=== PATIENT | female | born 1935 | race Caucasian/White ===

== ENCOUNTER 2016-10-19 19:25 | Inpatient (IN) ==
--- NOTE | 2016-10-19 19:35 | Emergency Department Note ---
Disposition Clinical Impression: Elevated troponin Altered mental status Qualifiers: Altered mental status type: unspecified Qualified Code(s): R41.82 - Altered mental status, unspecified Disposition: Admitted As Inpatient Altered Mental Status HPI - General Chief Complaint: ED Altered Mental Status Stated Complaint: AMS x 1 week Time Seen by Provider: 10/19/16 19:28 Source: EMS Mode of arrival: ambulatory Limitations: no limitations Nursing Notes Reviewed: Yes Vital Signs Reviewed: Yes - History of Present Illness HPI Narrative: 81-year-old brought in by EMS for evaluation of altered mental status. Patient found on the floor of her house covered in urine that smelled "infected". EMS states this been going on for 2 days. Family is on their way. Patient is able to tell me her name but does not know where she is at what year it is. Patient continues to talk without making sense. Vital signs stable. Blood sugar greater than 300. Signs of mild fluid overload with pitting edema in the lower extremities. Cardiac device present on the left chest. - Related Data Allergies Allergy/AdvReac Type Severity Reaction Status Date / Time naproxen [From Naprosyn] Allergy Rash Verified 10/19/16 22:08 Tetracycline Allergy Rash Verified 10/19/16 22:08 Limitations: ROS unobtainable due to patients medical condition Physical Exam - General Limitations: altered mental status - Head Head exam: atraumatic, normocephalic - Eye Eye exam: Present: normal appearance - ENT ENT exam: normal exam, normal oropharynx - Neck Neck exam: Present: normal inspection, full ROM. Absent: meningismus - Chest Chest inspection: Present: normal inspection, symmetric chest wall rise - Respiratory Respiratory exam: Present: normal lung sounds bilaterally. Absent: respiratory distress, wheezes - Cardiovascular Cardiovascular exam: Present: regular rate, normal rhythm - Abdominal Exam Abdominal exam: Present: soft, Non-Tender - Extremities Exam Extremities exam: Present: normal inspection, pedal edema (+1 pitting edema to the ankle) - Back Exam Back exam: Present: normal inspection - Expanded Neurological Exam Patient oriented to: Present: person. Absent: place Speech: Present: fluid speech Cranial nerves: facial palsy (VII): Normal Other motor function: There is also her extremities without gross deficit. Due to mental status unable to follow specific commands. Coma Scale Eye Opening: Spontaneous Coma Scale Motor Response: Obeys Commands Coma Scale Verbal Response: Oriented Coma Scale Total: 15 - Psychiatric Psychiatric exam: Present: flat affect - Skin Skin exam: Present: warm, dry, intact Course - Reevaluation(s) Reevaluation #1: Discussed with family at bedside. The patient has been acting different from her baseline. Patient has been taking laxative medications and been having diarrhea. Patient is not the most compliant with her medications. They have been working on this with her. They are not sure how much of anything she has taken. Reevaluation #2: CT abdomen as well as further lab testing ordered. Patient with slightly elevated troponin otherwise nonspecific labs. Patient will need further monitoring in the hospital. - Consultations Consultation #1: Discussed with Dr. King. Pt accepted for admission. Vital Signs Temperature 0 F L 10/19/16 19:28 Pulse Rate 87 10/19/16 19:28 Respiratory Rate 18 10/19/16 19:28 Blood Pressure 161/80 10/19/16 19:28 O2 Sat by Pulse Oximetry 95 10/19/16 19:28 Temperature 97.8 F 10/20/16 07:29 Pulse Rate 67 10/20/16 07:29 Respiratory Rate 16 10/20/16 07:29 Blood Pressure 136/80 10/20/16 07:29 O2 Sat by Pulse Oximetry 99 10/20/16 07:29 Oxygen Delivery Oxygen Delivery Nasal Cannula Altered Mental Status - Medical Records Medical records reviewed: Yes I reviewed the patient's medical records. - Lab Data Lab results reviewed: Yes I reviewed the patient's lab results. Result diagrams: 10/20/16 01:53 10/20/16 01:53 Lab Results 10/19/16 10/19/16 10/19/16 Range/Units 19:33 19:45 19:54 WBC 9.0 (4.3-11.1) K/mcL RBC 5.02 H (3.82-4.97) M/mcL Hgb 14.4 (11.5-15.4) g/dL Hct 43.2 (35.3-44.9) % MCV 86.1 (83.0-100.0) fL MCH 28.7 (28.0-33.3) pg MCHC 33.3 (31.6-35.5) g/dL RDW 12.8 (11.5-14.5) % Plt Count 206 (140-400) K/mcL MPV 9.6 (9.4-12.4) fL Immature Gran % 1.2 (0-4) % Seg Neutrophils % 71.8 % Lymphocytes % 19.6 % Monocytes % 5.8 % Eosinophils % 0.9 % Basophils % 0.7 % Neutrophils # 6.4 (1.6-8.9) K/mcL Lymphocytes # 1.8 (0.6-4.6) K/mcL Monocytes # 0.5 (0.0-1.3) K/mcL Eosinophils # 0.1 (0.0-0.6) K/mcL Basophils # 0.1 (0.0-0.2) K/mcL PT (9.4-12.1) Seconds INR Sodium (136-145) mEq/L Potassium (3.5-4.5) mEq/L Chloride (98-109) mEq/L Carbon Dioxide (19-29) mEq/L BUN (7-20) mg/dL Creatinine (0.57-1.11) mg/dL Est GFR ( Amer) (> 60) Est GFR (Non-Af Amer) (> 60) BUN/Creatinine Ratio (6-26) Glucose (70-99) mg/dL POC Glucose 354 H (58-89) Calculated Osmolality (280-300) Lactic Acid (0.5-2.2) mmol/L Calcium (8.6-10.8) mg/dL Total Bilirubin (0.2-1.2) mg/dL Direct Bilirubin (0.0-0.5) mg/dL Indirect Bilirubin (0.0-1.2) mg/dL AST (5-34) Units/L ALT (0-55) Units/L Alkaline Phosphatase (38-126) Units/L Ammonia (18-72) mcmol/L Creatine Kinase (29-168) Units/L Troponin I (0-0.03) ng/mL Serum Total Protein (6.0-8.3) g/dL Albumin (3.5-5.0) g/dL Globulin (2.4-3.5) g/dL Albumin/Globulin Ratio (1.1-2.2) TSH (0.350-4.840) mcIU/mL Urine Color Yellow (Yellow) Urine Clarity Clear (Clear) Urine pH 5.5 (5.0-8.0) pH Units Ur Specific [place] > 1.030 H (1.010-1.025) Urine Protein Negative (Neg-Trace) mg/dL Urine Glucose (UA) >=1000 H (Normal) mg/dL Urine Ketones 15 H (Negative) mg/dL Urine Blood Negative (Negative) Urine Nitrite Negative (Negative) Urine Bilirubin Negative (Negative) Urine Urobilinogen Normal (Normal) mg/dL Ur Leukocyte Esterase Negative (Negative) Ur Culture Indicated? NO (NO) Ethyl Alcohol (0-10) mg/dL 10/19/16 10/19/16 10/19/16 Range/Units 19:54 19:54 19:54 WBC (4.3-11.1) K/mcL RBC (3.82-4.97) M/mcL Hgb (11.5-15.4) g/dL Hct (35.3-44.9) % MCV (83.0-100.0) fL MCH (28.0-33.3) pg MCHC (31.6-35.5) g/dL RDW (11.5-14.5) % Plt Count (140-400) K/mcL MPV (9.4-12.4) fL Immature Gran % (0-4) % Seg Neutrophils % % Lymphocytes % % Monocytes % % Eosinophils % % Basophils % % Neutrophils # (1.6-8.9) K/mcL Lymphocytes # (0.6-4.6) K/mcL Monocytes # (0.0-1.3) K/mcL Eosinophils # (0.0-0.6) K/mcL Basophils # (0.0-0.2) K/mcL PT 11.4 (9.4-12.1) Seconds INR 1.1 Sodium 137 (136-145) mEq/L Potassium 4.1 (3.5-4.5) mEq/L Chloride 102 (98-109) mEq/L Carbon Dioxide 23 (19-29) mEq/L BUN 15 (7-20) mg/dL Creatinine 1.04 (0.57-1.11) mg/dL Est GFR ( Amer) > 60 (> 60) Est GFR (Non-Af Amer) 51 L (> 60) BUN/Creatinine Ratio 14 (6-26) Glucose 402 H (70-99) mg/dL POC Glucose (58-89) Calculated Osmolality 302 H (280-300) Lactic Acid (0.5-2.2) mmol/L Calcium 9.7 (8.6-10.8) mg/dL Total Bilirubin 1.4 H (0.2-1.2) mg/dL Direct Bilirubin 0.5 (0.0-0.5) mg/dL Indirect Bilirubin 0.9 (0.0-1.2) mg/dL AST 20 (5-34) Units/L ALT 23 (0-55) Units/L Alkaline Phosphatase 62 (38-126) Units/L Ammonia (18-72) mcmol/L Creatine Kinase (29-168) Units/L Troponin I 0.13 H* (0-0.03) ng/mL Serum Total Protein 6.3 (6.0-8.3) g/dL Albumin 3.2 L (3.5-5.0) g/dL Globulin 3.1 (2.4-3.5) g/dL Albumin/Globulin Ratio 1.0 L (1.1-2.2) TSH 2.620 (0.350-4.840) mcIU/mL Urine Color (Yellow) Urine Clarity (Clear) Urine pH (5.0-8.0) pH Units Ur Specific [place] (1.010-1.025) Urine Protein (Neg-Trace) mg/dL Urine Glucose (UA) (Normal) mg/dL Urine Ketones (Negative) mg/dL Urine Blood (Negative) Urine Nitrite (Negative) Urine Bilirubin (Negative) Urine Urobilinogen (Normal) mg/dL Ur Leukocyte Esterase (Negative) Ur Culture Indicated? (NO) Ethyl Alcohol < 10 (0-10) mg/dL 10/19/16 10/19/16 10/19/16 Range/Units 19:54 19:54 20:54 WBC (4.3-11.1) K/mcL RBC (3.82-4.97) M/mcL Hgb (11.5-15.4) g/dL Hct (35.3-44.9) % MCV (83.0-100.0) fL MCH (28.0-33.3) pg MCHC (31.6-35.5) g/dL RDW (11.5-14.5) % Plt Count (140-400) K/mcL MPV (9.4-12.4) fL Immature Gran % (0-4) % Seg Neutrophils % % Lymphocytes % % Monocytes % % Eosinophils % % Basophils % % Neutrophils # (1.6-8.9) K/mcL Lymphocytes # (0.6-4.6) K/mcL Monocytes # (0.0-1.3) K/mcL Eosinophils # (0.0-0.6) K/mcL Basophils # (0.0-0.2) K/mcL PT (9.4-12.1) Seconds INR Sodium (136-145) mEq/L Potassium (3.5-4.5) mEq/L Chloride (98-109) mEq/L Carbon Dioxide (19-29) mEq/L BUN (7-20) mg/dL Creatinine (0.57-1.11) mg/dL Est GFR ( Amer) (> 60) Est GFR (Non-Af Amer) (> 60) BUN/Creatinine Ratio (6-26) Glucose (70-99) mg/dL POC Glucose (58-89) Calculated Osmolality (280-300) Lactic Acid 1.7 (0.5-2.2) mmol/L Calcium (8.6-10.8) mg/dL Total Bilirubin (0.2-1.2) mg/dL Direct Bilirubin (0.0-0.5) mg/dL Indirect Bilirubin (0.0-1.2) mg/dL AST (5-34) Units/L ALT (0-55) Units/L Alkaline Phosphatase (38-126) Units/L Ammonia 17 L (18-72) mcmol/L Creatine Kinase 122 (29-168) Units/L Troponin I (0-0.03) ng/mL Serum Total Protein (6.0-8.3) g/dL Albumin (3.5-5.0) g/dL Globulin (2.4-3.5) g/dL Albumin/Globulin Ratio (1.1-2.2) TSH (0.350-4.840) mcIU/mL Urine Color (Yellow) Urine Clarity (Clear) Urine pH (5.0-8.0) pH Units Ur Specific [place] (1.010-1.025) Urine Protein (Neg-Trace) mg/dL Urine Glucose (UA) (Normal) mg/dL Urine Ketones (Negative) mg/dL Urine Blood (Negative) Urine Nitrite (Negative) Urine Bilirubin (Negative) Urine Urobilinogen (Normal) mg/dL Ur Leukocyte Esterase (Negative) Ur Culture Indicated? (NO) Ethyl Alcohol (0-10) mg/dL - Radiology Data Radiology results reviewed: Yes I reviewed the patient's radiology results. Chest X-Ray 10/19/16 19:30 IMPRESSION: No acute cardiopulmonary process. D/ / Dominic Apodaca MD / Dominic Apodaca MD Interpreting Provider: Dominic Apodaca MD Head CT 10/19/16 19:30 IMPRESSION: No acute cranial abnormality. [id number] pattern of microvascular ischemic disease in the cerebral white matter. Posterior fossa arachnoid cyst. D/ / Ridge Becerra MD / Ridge Becerra MD Interpreting Provider: Ridge Becerra MD Cervical Spine CT 10/19/16 19:38 IMPRESSION: No acute abnormality of the cervical spine. D/ / Norris Quinn MD / Norris Quinn MD Interpreting Provider: Norris Quinn MD Abdomen/Pelvis CT 10/19/16 20:29 IMPRESSION: 1. No acute abnormality detected. 2. Chronic left adnexal cyst, unchanged when compared to the previous exam. 3. Chronic T12 compression fracture, unchanged. D/ / Norris Quinn MD / Norris Quinn MD Interpreting Provider: Norris Quinn MD - EKG Data EKG attestation: Yes I reviewed and interpreted this EKG. EKG results narrative: EKG shows electronically paced rhythm with a ventricular rate of 82. QRS 156. QTC 452. No significant ST elevations or depressions. No specific changes from previous EKG of 01/19/13. Attestation Statement - Attestation Attestation: I, Carlos Blanca MD, personally evaluated this patient and discussed their management with the resident physician. I reviewed the resident's note and agree with the documented findings, medical decision making, and plan of care. 81-year-old female presents to the emergency department for altered mental status and weakness. She lives with her daughter and daughter reports that she is normally very alert and oriented and works crossword puzzles. She states that over the past couple days she has had increasing weakness and been less active and seemed more confused. This afternoon when daughter came home from work she states the patient was sitting on the couch that was sort of slumped over and leaning to one side. The daughter tried to help her straighten up on the couch but she just slid off the couch and onto the floor and could not get up. He has not been sick otherwise. His been no cough or fever. No complaint of chest pain or shortness of breath. No vomiting or diarrhea. No complaints of urinary symptoms. On examination patient is a well-developed thin elderly female in no acute distress. She responds to verbal stimuli but seems confused and disoriented. There is no cyanosis or diaphoresis. Neck is supple and nontender. Breath sounds are equal bilaterally. Heart regular. Abdomen is soft and nontender with normal bowel sounds. No gross focal neurological deficits. Lab and x-rays reviewed and unremarkable other than an elevated troponin of 0.13. No acute changes noted on EKG. The hospitalist, Dr. King, was consulted and accepted admission of the patient.
[2016-10-19 19:54] LABS: Bilirubin,Urine Negative (Negative); Blood,Urine Negative (Negative); Clarity,Urine Clear (Clear); Color,Urine Yellow (Yellow); Glucose,Urine (UA) >=1000 mg/dL (Normal); Ketones,Urine 15 mg/dL (Negative); Leukocyte Esterase,Urine Negative (Negative); Nitrite,Urine Negative (Negative); PH,Urine 5.5 pH Units (5.0-8.0); Protein,Urine Negative (Neg-Trace); Specific Gravity,Urine > 1.030 (1.010-1.025); Urobilinogen,Urine Normal (Normal)
[2016-10-19 20:00] LABS: Basophils # 0.1 K/mcL (0.0-0.2); Basophils % 0.7 %; Eosinophils # 0.1 K/mcL (0.0-0.6); Eosinophils % 0.9 %; Hematocrit 43.2 % (35.3-44.9); Hemoglobin 14.4 g/dL (11.5-15.4); Immature Granulocytes % 1.2 % (0-4); Lymphocytes # 1.8 K/mcL (0.6-4.6); Lymphocytes % 19.6 %; Mean Corpuscular HGB Conc 33.3 g/dL (31.6-35.5); Mean Corpuscular Hemoglobin 28.7 pg (28.0-33.3); Mean Corpuscular Volume 86.1 fL (83.0-100.0); Mean Platelet Volume 9.6 fL (9.4-12.4); Monocytes # 0.5 K/mcL (0.0-1.3); Monocytes % 5.8 %; Neutrophils # 6.4 K/mcL (1.6-8.9); Platelet Count 206 K/mcL (140-400); Red Blood Count 5.02 M/mcL (3.82-4.97); Red Cell Distribution Width 12.8 % (11.5-14.5); Segmented Neutrophils % 71.8 %
[2016-10-19 20:05] LABS: INR 1.1; Prothrombin Time 11.4 Seconds (9.4-12.1)
[2016-10-19 20:16] LABS: Alanine Aminotransferase 23 Units/L (0-55); Albumin 3.2 g/dL (3.5-5.0); Alkaline Phosphatase 62 Units/L (38-126); Aspartate Amino Transferase 20 Units/L (5-34); BUN/Creatinine Ratio 14 (6-26); Bilirubin,Direct 0.5 mg/dL (0.0-0.5); Bilirubin,Indirect 0.9 mg/dL (0.0-1.2); Bilirubin,Total 1.4 mg/dL (0.2-1.2); Blood Urea Nitrogen 15 mg/dL (7-20); Calcium 9.7 mg/dL (8.6-10.8); Carbon Dioxide 23 mEq/L (19-29); Chloride 102 mEq/L (98-109); Globulin 3.1 g/dL (2.4-3.5); Glucose 402 mg/dL (70-99); Osmolality,Calculated 302 (280-300); Potassium 4.1 mEq/L (3.5-4.5); Sodium 137 mEq/L (136-145); Total Protein 6.3 g/dL (6.0-8.3); eGFR For African Americans > 60 (> 60); eGFR For Non-African Americans 51 (> 60)
[2016-10-19 20:48] LABS: Ethanol < 10 mg/dL (0-10)
[2016-10-19] MEDS ORDERED: 0.9 % Sodium Chloride 1,000 ML IVC ONE (21:38)
[2016-10-19] MEDS ORDERED: Aspirin 81 MG TAB.CHEW PO STA (22:12)
--- NOTE | 2016-10-19 23:57 | Internal Med History&Physical ---
Date of Encounter: 10/20/16 Time of Encounter: 23:50 Assessment and Plan (1) Acute encephalopathy Current visit: Yes Status: Acute - Still confused at this time. - Likely metabolic encephalopathy given her hyperglycemia and dehydration. - UA does not suggest UTI. - CXR does not suggest pneumonia. - Continue IV fluid and insulin. - Closely monitor. (2) Elevated troponin Current visit: Yes Status: Acute - Troponin 0.13 in ED. - Likely demand ischemia. Doubt CT given no significant ischemic change on EKG. - Continue to trend troponin. (3) Hyperglycemia Current visit: Yes Status: Acute - Glucose 402 on admission. - Likely secondary to non-compliance to diabetes medication and dehydration. - Doubt DKA given normal anion gap (12). - Insulin sliding scale with routine Accucheck. (4) Dehydration Current visit: Yes Status: Acute - With highly concentrated urine. - Unlikely rhabdomyolysis given normal CK. - Will rehydrate with IV fluid. (5) Diabetes mellitus Current visit: Yes Status: Chronic - Likely [id number] as last Hgb A1C at 11.2 on 08/23/15 - Will check Hgb A1C. - Insulin sliding scale with routine Accucheck. 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 Internal Medicine - H&P: HPI Chief complaint: Altered mental status Admitted From: Emergency Dept Plans for Post Hospital Care: Home History of present illness: Ms. Zelaya is a 81 year old female with PMH of DM2, HTN, HLD, CAD and complete heart block s/p dual chamber pacemaker placement. Patient was sent to [place] ED after being found down on the floor at home covered in urine for 2 days. Upon encounter, patient can only oriented to her name and not answer other questions appropriately. Given no family member at bedside, the history is obtained via reviewing [facility] and [facility] records. Per ED physician who talked to the family members, patient has been acting different from her baseline. Patient has been taking laxative medications and having diarrhea. Patient is known non-compliant with her medications. CT head, cervical spine and abdomen/ pelvis found no acute abnormality. Lab suggests hyperglycemia, highly concentrated urine and elevated troponin (0.13). EKG is consistent with complete heart block s/p dual chamber pacemaker and no significant ischemic change. Past Med Surg Social Fam HX - Past Medical History Medical history: diabetes, hypertension Psychiatric history: no psych history - Past Surgical History Surgical History: pacemaker/AICD (Dual chamber pacemaker) - Social History Smoking Status: Former smoker Smokeless Tobacco Status: No Alcohol use: none Drug use: none - Family History Father Living Status: Age at : 64 Hx Family Cardiac Disorders: Yes (CT) Internal Medicine - H&P: Meds Allergies naproxen [From Naprosyn] Allergy (Verified 10/19/16 22:08) Rash Tetracycline Allergy (Verified 10/19/16 22:08) Rash ROS unobtainable: due to mental status - Constitutional Vitals: Temp Pulse Resp BP Pulse Ox 0 F L 80 0 0/0 96 10/19/16 23:14 10/19/16 22:54 10/19/16 23:14 10/19/16 23:14 10/19/16 22:54 General appearance: Present: A&O X 1 ([place] to self only), no acute distress. Absent: answers questions appropriately - Head Head exam: Present: atraumatic, normocephalic - Eye Eye exam: Present: PERRL, conjuntiva pink, sclera anicteric - Neck Neck exam general surgery: Present: supple, trachea midline. Absent: lymphadenopathy - Respiratory Respiratory exam: Present: CTAB. Absent: accessory muscle use, rales, rhonchi, wheezes - Cardiovascular Cardiovascular exam: Present: RRR, +S1, +S2. Absent: diastolic murmur, gallop, rubs, systolic murmur - GI/Abdominal GI/Abdominal exam: Present: normal bowel sounds, soft, no peritoneal signs. Absent: distended, tenderness - Extremities Exam Extremities exam: Present: warm, radial pulses palpable and symetrical. Absent : calf tenderness, cyanotic, pedal edema - Neurological Exam Neurological exam: Absent: pronater drift, facial droop Additional comments: Unable to fully assess given patient's mental status. Patient seems to be able to move her upper and lower extremities. - Skin Skin exam: Present: dry, intact, warm Internal Med - H&P Results - Labs CBC & Chem 7: 10/19/16 19:54 10/19/16 19:54
[2016-10-20] MEDS ORDERED: D5% in Water 1,000 ML IVC PRN (00:11)
[2016-10-20] MEDS ORDERED: *HR* Dextrose 50 % in Water (Syg) 50 ML SYRINGE IVP PRN (00:11)
[2016-10-20] MEDS ORDERED: Dextrose Gel 15 GM PO PRN ×2 (00:11)
--- NOTE | 2016-10-20 00:14 | Event Note ---
Date of Encounter: 10/20/16 Time of Encounter: 00:13 Patient seen and examined with medical chemist. She was found on the ground unknown time. Patient confused during my interview unable to provide history. No clear infectious cause. Vitals are stable. Head CT is unremarkable. She is hyperglycemic no anion gap. Slight dehydration. CPK is normal. Will hydrate physical therapy occupational therapy to see. Observation admisison
[2016-10-20] MEDS ORDERED: Insulin LISPRO 300 UNITS/3 ML VIAL SQ ONE (02:19)
[2016-10-20] MEDS: Insulin LISPRO 300 UNITS/3 ML VIAL SQ SCH ×5 (02:22→23:50)
[2016-10-20 02:55] LABS: Basophils # 0.1 K/mcL (0.0-0.2); Basophils % 0.6 %; Eosinophils # 0.1 K/mcL (0.0-0.6); Eosinophils % 0.9 %; Hemoglobin 13.9 g/dL (11.5-15.4); Immature Granulocytes % 1.6 % (0-4); Lymphocytes # 1.9 K/mcL (0.6-4.6); Mean Corpuscular HGB Conc 33.1 g/dL (31.6-35.5); Mean Corpuscular Hemoglobin 28.4 pg (28.0-33.3); Mean Corpuscular Volume 85.9 fL (83.0-100.0); Mean Platelet Volume 9.9 fL (9.4-12.4); Monocytes # 0.6 K/mcL (0.0-1.3); Neutrophils # 6.2 K/mcL (1.6-8.9); Platelet Count 196 K/mcL (140-400); Red Blood Count 4.89 M/mcL (3.82-4.97); Red Cell Distribution Width 12.7 % (11.5-14.5); Segmented Neutrophils % 68.9 %
[2016-10-20 02:59] LABS: Hemoglobin A1C 12.7 %
[2016-10-20 03:02] LABS: Alanine Aminotransferase 16 Units/L (0-55); Albumin 2.9 g/dL (3.5-5.0); Alkaline Phosphatase 58 Units/L (38-126); Aspartate Amino Transferase 18 Units/L (5-34); BUN/Creatinine Ratio 15 (6-26); Bilirubin,Total 1.5 mg/dL (0.2-1.2); Blood Urea Nitrogen 13 mg/dL (7-20); Calcium 9.1 mg/dL (8.6-10.8); Carbon Dioxide 24 mEq/L (19-29); Chloride 103 mEq/L (98-109); Glucose 359 mg/dL (70-99); Osmolality,Calculated 299 (280-300); Potassium 3.7 mEq/L (3.5-4.5); Sodium 137 mEq/L (136-145); Total Protein 5.9 g/dL (6.0-8.3); eGFR For African Americans > 60 (> 60); eGFR For Non-African Americans > 60 (> 60)
[2016-10-20] MEDS: *HR* Heparin 5,000 UNIT/ML VIAL SQ SCH ×3 (06:45→22:00)
[2016-10-20] MEDS: 0.9 % Sodium Chloride 1,000 ML IVC SCH ×2 (10:46→22:00)
--- NOTE | 2016-10-20 14:34 | Internal Med Progress Note ---
Date of Encounter: 10/20/16 Time of Encounter: 13:59 - Assessment and plan (1) Acute encephalopathy Current Visit: Yes Status: Acute Assessment and plan: was found down at home, acutely confused. Per ED notes, ED staff spoke with daughter and patient apparently at baseline mentation 2 days prior to admission (although baseline mentation unknown; no family at bedside and number in chart daughter is not a working number). Head CT and c-spine CT unremarkable. UA not suggestive of UTI, CXR non-acute. Possible metabolic encephalopathy given hyperglycemia and dehydration. Continue treating underlying causes. Monitor mental status. Consider Neurology consultation if no improvement. Brain MRI, ammonia, UDS and ABG pending (2) CAD (coronary artery disease) Current Visit: Yes Status: Acute Assessment and plan: with hx complete heart block s/p dual chamber pacemaker placement. Troponin 0.13 on arrival. EKG without acute ST changes. Possibly demand ischemia; unable to assess whether symptomatic. Troponin trending down. Cycle one more troponin, check echo, pacer interrogation. Cardiology consult if needed. Qualifiers: Coronary Disease-Associated Artery/Lesion type: [place] artery [place] vs. transplanted heart: [place] heart Associated angina: without angina Qualified Code(s): I25.10 - Atherosclerotic heart disease of [place] coronary artery without angina pectoris (3) Dehydration Current Visit: Yes Status: Acute Assessment and plan: with highly concentrated urine. Unlikely rhabdomyolysis given normal CK. Cont IV fluids. (4) Diabetes mellitus Current Visit: Yes Status: Chronic Assessment and plan: uncontrolled; glucose 402 on admission. Likely secondary to non-compliance to diabetes medication and dehydration. Doubt DKA given normal anion gap (12). Hgb A1c 12. Cont low dose SSI for now as she is NPO. Increase to more aggressive SSI once mentation improves and able to take PO Qualifiers: Diabetes mellitus type: type 2 Diabetes mellitus complication status: with unspecified complications Diabetes mellitus fpc insulin use: unspecified fpc insulin use status Qualified Code(s): E11.8 - Type 2 diabetes mellitus with unspecified complications (5) DVT prophylaxis Current Visit: Yes Status: Acute Assessment and plan: heparin - Time Spent With Patient 25 - 35 minutes - Subjective Interval history: Patient is new to me; information obtained from chart review and RN only as patient is lethargic, confused and unable to provide details. No family at bedside. Patient will open eyes and tells me her name but then quickly falls back to sleep. - Constitutional Vitals: Temp Pulse Resp BP Pulse Ox 98.0 F 69 16 123/78 94 10/20/16 11:42 10/20/16 11:42 10/20/16 11:42 10/20/16 11:42 10/20/16 11:42 General appearance: Present: A&O X 1 ([place] to self only), no acute distress. Absent: answers questions appropriately - Head Head exam: Present: atraumatic, normocephalic - Eye Eye exam: Present: PERRL, conjuntiva pink, sclera anicteric Pupils: Present: PERRL - Neck Neck exam general surgery: Present: supple, trachea midline. Absent: lymphadenopathy - Respiratory Respiratory exam: Present: CTAB. Absent: accessory muscle use, rales, rhonchi, wheezes - Cardiovascular Cardiovascular exam: Present: RRR, +S1, +S2. Absent: diastolic murmur, gallop, rubs, systolic murmur - GI/Abdominal GI/Abdominal exam: Present: normal bowel sounds, soft, no peritoneal signs. Absent: distended, tenderness - Extremities Exam Extremities exam: Present: warm, radial pulses palpable and symetrical. Absent : calf tenderness, cyanotic, pedal edema - Neurological Exam Neurological exam: Present: CN II-XII intact, oriented X3, no focal deficits. Absent: pronater drift, facial droop, speech deficit - Skin Skin exam: Present: dry, intact Internal Medicine: Result - Labs CBC & Chem 7: 10/20/16 01:53 10/20/16 01:53 Labs: Short CBC 10/20/16 Range/Units 01:53 WBC 8.9 (4.3-11.1) K/mcL Hgb 13.9 (11.5-15.4) g/dL Hct 42.0 (35.3-44.9) % Plt Count 196 (140-400) K/mcL Neutrophils # 6.2 (1.6-8.9) K/mcL BMP 10/20/16 01:53 Sodium 137 Potassium 3.7 Chloride 103 Carbon Dioxide 24 BUN 13 Creatinine 0.87 Glucose 359 H Calcium 9.1 Cardiac Enzymes 10/20/16 10/20/16 Range/Units 01:53 08:15 Troponin I 0.11 H* 0.12 H* (0-0.03) ng/mL Liver Function 10/20/16 Range/Units 01:53 Total Bilirubin 1.5 H (0.2-1.2) mg/dL AST 18 (5-34) Units/L ALT 16 (0-55) Units/L Alkaline Phosphatase 58 (38-126) Units/L Albumin 2.9 L (3.5-5.0) g/dL - ABG Interpretation ABG results: PT/INR, D-dimer PT 11.4 Seconds (9.4-12.1) 10/19/16 19:54 Consult Discharge Plan - Plan Referrals: Mikie Duncan MD [Primary Care Provider] -
[2016-10-20 15:34] LABS: ABG Base Excess 0.9 mEq/L (-2.0 to 3.0); ABG Oxygen Saturation 98 % (95-98); ABG PCO2 33 mmHg (35-45); ABG PH 7.47 pH Units (7.32-7.45); ABG PO2 100 mmHg (85-104); Blood Gas FiO2 21 %
[2016-10-21 03:54] LABS: Hematocrit 39.3 % (35.3-44.9); Hemoglobin 12.5 g/dL (11.5-15.4); Mean Corpuscular HGB Conc 31.8 g/dL (31.6-35.5); Mean Corpuscular Hemoglobin 28.8 pg (28.0-33.3); Mean Corpuscular Volume 90.6 fL (83.0-100.0); Mean Platelet Volume 9.8 fL (9.4-12.4); Platelet Count 150 K/mcL (140-400); Red Blood Count 4.34 M/mcL (3.82-4.97)
[2016-10-21 04:06] LABS: Alanine Aminotransferase 12 Units/L (0-55); Albumin 2.4 g/dL (3.5-5.0); Alkaline Phosphatase 49 Units/L (38-126); Aspartate Amino Transferase 18 Units/L (5-34); BUN/Creatinine Ratio 16 (6-26); Bilirubin,Total 1.1 mg/dL (0.2-1.2); Blood Urea Nitrogen 11 mg/dL (7-20); Calcium 8.3 mg/dL (8.6-10.8); Carbon Dioxide 20 mEq/L (19-29); Chloride 112 mEq/L (98-109); Globulin 2.5 g/dL (2.4-3.5); Glucose 126 mg/dL (70-99); Osmolality,Calculated 291 (280-300); Potassium 3.5 mEq/L (3.5-4.5); Sodium 140 mEq/L (136-145); Total Protein 4.9 g/dL (6.0-8.3); eGFR For African Americans > 60 (> 60); eGFR For Non-African Americans > 60 (> 60)
[2016-10-21] MEDS ORDERED: Magnesium Sulfate 2 GM in D5% in Water 100 ML IVPB ONE (05:02)
[2016-10-21] MEDS: *HR* Heparin 5,000 UNIT/ML VIAL SQ SCH ×3 (06:05→22:20)
[2016-10-21] MEDS: Insulin LISPRO 300 UNITS/3 ML VIAL SQ SCH ×4 (06:06→22:21)
[2016-10-21] MEDS ORDERED: 0.9 % Sodium Chloride 250 ML IVC ONE (06:48)
[2016-10-21 10:15] LABS: Amphetamine Screen,Urine Negative ng/mL (Cutoff=1000); Barbiturate Screen,Urine Negative ng/mL (Cutoff=200); Benzodiazepines Screen,Urine Negative ng/mL (Cutoff=200); Cannabinoid Screen,Urine Negative ng/mL (Cutoff = 50); Cocaine Screen,Urine Negative ng/mL (Cutoff= 300); Opiate Screen,Urine Negative ng/mL (Cutoff=300); Phencyclidine Screen,Urine Negative ng/mL (Cutoff=25)
[2016-10-21] MEDS: 0.9 % Sodium Chloride 1,000 ML IVC SCH ×3 (10:44→22:22)
--- NOTE | 2016-10-21 11:59 | Event Note ---
Date of Encounter: 10/21/16 Time of Encounter: 11:58 - Cardiology Event Note Device interrogated. No events noted to explain syncope, normal functioning PPM. Cardiology signing off. Reconsult PRN.
--- NOTE | 2016-10-21 14:02 | Internal Med Progress Note ---
Date of Encounter: 10/21/16 Time of Encounter: 14:00 - Assessment and plan (1) Acute encephalopathy Current Visit: Yes Status: Acute Assessment and plan: Patient was found down at home, acutely confused. Per ED notes, ED staff spoke with daughter and patient apparently at baseline mentation 2 days prior to admission. Head CT and c-spine CT unremarkable. UA not suggestive of UTI, CXR showed no acute process. Likely metabolic encephalopathy given hyperglycemia and dehydration. ABG unremarkable, UDS negative. Ammonia level normal. Brain MRI pending, patient with pacemaker. Consulted neurology, will see patient tomorrow and requested ESR, CRP and HSV PCR. (2) Diabetes mellitus Current Visit: Yes Status: Chronic Assessment and plan: Uncontrolled. Check blood sugars ACHS Hold metformin Sliding scale correction dose ACHS hypoglycemic protocol. Qualifiers: Diabetes mellitus type: type 2 Diabetes mellitus complication status: with unspecified complications Diabetes mellitus penitentiary insulin use: unspecified penitentiary insulin use status Qualified Code(s): E11.8 - Type 2 diabetes mellitus with unspecified complications (3) Dehydration Current Visit: Yes Status: Acute Assessment and plan: Continue 0.9NS at 100mL/hr. Patient passed swallow study and can eat, encourage PO intake. Check chemistry daily. (4) CAD (coronary artery disease) Current Visit: Yes Status: Acute Assessment and plan: Troponin 0.13 on arrival. EKG without acute ST changes. Possibly demand ischemia; unable to assess whether symptomatic. Troponin continued to trend downward. Cardiology interrogated pacer, with no events noted and normal functioning PPM. Continue home dose of aspirin, beta collin and statin. Qualifiers: Coronary Disease-Associated Artery/Lesion type: [place] artery [place] vs. transplanted heart: [place] heart Associated angina: without angina Qualified Code(s): I25.10 - Atherosclerotic heart disease of [place] coronary artery without angina pectoris (5) DVT prophylaxis Current Visit: Yes Status: Acute Assessment and plan: Heparin 5000u SQ TID - Subjective Interval history: Patient unable to answer orientation questions. - Constitutional Vitals: Temp Pulse Resp BP Pulse Ox 98.2 F 75 16 150/85 96 10/21/16 12:35 10/21/16 12:35 10/21/16 12:35 10/21/16 12:35 10/21/16 12:35 General appearance: Present: A&O X 0, no acute distress. Absent: answers questions appropriately - Head Head exam: Present: atraumatic, normocephalic - Eye Eye exam: Present: PERRL, conjuntiva pink, sclera anicteric Pupils: Present: PERRL - Neck Neck exam general surgery: Present: supple, trachea midline. Absent: lymphadenopathy - Respiratory Respiratory exam: Present: CTAB. Absent: accessory muscle use, rales, rhonchi, wheezes - Cardiovascular Cardiovascular exam: Present: RRR, +S1, +S2. Absent: diastolic murmur, gallop, rubs, systolic murmur - GI/Abdominal GI/Abdominal exam: Present: normal bowel sounds, soft, no peritoneal signs. Absent: distended, tenderness - Extremities Exam Extremities exam: Present: warm, radial pulses palpable and symetrical. Absent : calf tenderness, cyanotic, pedal edema - Neurological Exam Neurological exam: Absent: facial droop, speech deficit - Skin Skin exam: Present: dry, intact Internal Medicine: Result - Labs CBC & Chem 7: 10/21/16 02:57 10/21/16 02:57 Labs: Short CBC 10/21/16 Range/Units 02:57 WBC 7.2 (4.3-11.1) K/mcL Hgb 12.5 (11.5-15.4) g/dL Hct 39.3 (35.3-44.9) % Plt Count 150 (140-400) K/mcL BMP 10/21/16 02:57 Sodium 140 Potassium 3.5 Chloride 112 H Carbon Dioxide 20 BUN 11 Creatinine 0.69 Glucose 126 H Calcium 8.3 L Cardiac Enzymes 10/20/16 Range/Units 15:05 Troponin I 0.10 H* (0-0.03) ng/mL Liver Function 10/21/16 Range/Units 02:57 Total Bilirubin 1.1 (0.2-1.2) mg/dL AST 18 (5-34) Units/L ALT 12 (0-55) Units/L Alkaline Phosphatase 49 (38-126) Units/L Albumin 2.4 L (3.5-5.0) g/dL - ABG Interpretation ABG results: ABG ABG pH 7.47 pH Units (7.32-7.45) H 10/20/16 15:23 ABG pCO2 33 mmHg (35-45) L 10/20/16 15:23 ABG pO2 100 mmHg (85-104) 10/20/16 15:23 ABG O2 Saturation 98 % (95-98) 10/20/16 15:23 PT/INR, D-dimer PT 11.4 Seconds (9.4-12.1) 10/19/16 19:54 - Diagnostic Studies CT scan - head Additional comments: Head CT 10/19/16 19:30 IMPRESSION: No acute cranial abnormality. [id number] pattern of microvascular ischemic disease in the cerebral white matter. Posterior fossa arachnoid cyst. D/ / Ridge Becerra MD / Ridge Becerra MD Interpreting Provider: Ridge Becerra MD CT scan - abdomen Additional comments: Abdomen/Pelvis CT 10/19/16 20:29 IMPRESSION: 1. No acute abnormality detected. 2. Chronic left adnexal cyst, unchanged when compared to the previous exam. 3. Chronic T12 compression fracture, unchanged. D/ / Norris Quinn MD / Norris Quinn MD Interpreting Provider: Norris Quinn MD Chest x-ray Additional comments: Chest X-Ray 10/19/16 19:30 IMPRESSION: No acute cardiopulmonary process. D/ / Dominic Apodaca MD / Dominic Apodaca MD Interpreting Provider: Dominic Apodaca MD Other Images Additional comments: [address] 10/19/16 19:38 IMPRESSION: No acute abnormality of the cervical spine. D/ / Norris Quinn MD / Norris Quinn MD Interpreting Provider: Norris Quinn MD Consult Discharge Plan - Plan Referrals: Mikie Duncan MD [Primary Care Provider] -
[2016-10-22 04:12] LABS: Hematocrit 35.1 % (35.3-44.9); Hemoglobin 12.1 g/dL (11.5-15.4); Mean Corpuscular HGB Conc 34.5 g/dL (31.6-35.5); Mean Corpuscular Hemoglobin 29.8 pg (28.0-33.3); Mean Corpuscular Volume 86.5 fL (83.0-100.0); Mean Platelet Volume 10.1 fL (9.4-12.4); Platelet Count 164 K/mcL (140-400); Red Blood Count 4.06 M/mcL (3.82-4.97); Red Cell Distribution Width 12.9 % (11.5-14.5)
[2016-10-22 04:31] LABS: Alanine Aminotransferase 11 Units/L (0-55); Albumin 2.2 g/dL (3.5-5.0); Albumin/Globulin Ratio 0.9 (1.1-2.2); Alkaline Phosphatase 51 Units/L (38-126); Aspartate Amino Transferase 17 Units/L (5-34); BUN/Creatinine Ratio 17 (6-26); Bilirubin,Total 0.9 mg/dL (0.2-1.2); Blood Urea Nitrogen 14 mg/dL (7-20); Calcium 8.1 mg/dL (8.6-10.8); Carbon Dioxide 23 mEq/L (19-29); Chloride 108 mEq/L (98-109); Globulin 2.5 g/dL (2.4-3.5); Glucose 193 mg/dL (70-99); Osmolality,Calculated 288 (280-300); Potassium 3.5 mEq/L (3.5-4.5); Sodium 136 mEq/L (136-145); Total Protein 4.7 g/dL (6.0-8.3); eGFR For African Americans > 60 (> 60); eGFR For Non-African Americans > 60 (> 60)
[2016-10-22] MEDS: *HR* Heparin 5,000 UNIT/ML VIAL SQ SCH ×3 (05:06→20:29)
[2016-10-22] MEDS: Metoprolol XL (24 HR) Succ 25 MG TAB.ER.24H PO SCH (08:18)
[2016-10-22] MEDS: Insulin LISPRO 300 UNITS/3 ML VIAL SQ SCH ×4 (08:18→20:29)
[2016-10-22] MEDS: Lisinopril 20 MG TABLET PO SCH (08:19)
[2016-10-22] MEDS: 0.9 % Sodium Chloride 1,000 ML IVC SCH (08:19)
[2016-10-22] MEDS ORDERED: Metoprolol XL (24 HR) Succ 25 MG TAB.ER.24H PO ONE (10:34)
--- NOTE | 2016-10-22 12:48 | Internal Med Progress Note ---
<Julian Harvey - Last Filed: 10/22/16 12:53> Date of Encounter: 10/22/16 Time of Encounter: 10:00 - Assessment and plan (1) Acute encephalopathy Current Visit: Yes Status: Acute Assessment and plan: AMS has improved. he is vastly improved today in terms of her orientation. Patient was found down at home, acutely confused. Per ED notes, ED staff spoke with daughter and patient apparently at baseline mentation 2 days prior to admission. Head CT and c-spine CT unremarkable. UA not suggestive of UTI, CXR showed no acute process. Likely metabolic encephalopathy given hyperglycemia and dehydration. ABG unremarkable, UDS negative. Ammonia level normal. ESR normal. CRP 42 HSV pending. MRI brain unable to be performed due to not being able to determine if he pacemaker is compatible. Neurology has been consulted and we await further recommendations. Patient seems depressed and this may be causing some of her issues. Will consider psych consult after she is cleared from a neurological perspective. (2) Diabetes mellitus Current Visit: Yes Status: Chronic Assessment and plan: Uncontrolled at time of admission now improved control Check blood sugars ACHS continue Holding metformin, Continue SSI hypoglycemic protocol. 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 IV fluids discontinued. encourage patient to drink PO liquids. (4) CAD (coronary artery disease) Current Visit: Yes Status: Acute Assessment and plan: Troponin 0.13 on arrival. EKG without acute ST changes. Possibly demand ischemia; unable to assess whether symptomaticat the time. Patient denies current chest pain. Troponin continued to trend downward. Cardiology interrogated pacer, with no events noted and normal functioning PPM. Continue home dose of aspirin, beta collin and statin. Qualifiers: Coronary Disease-Associated Artery/Lesion type: [place] artery [place] vs. transplanted heart: [place] heart Associated angina: without angina Qualified Code(s): I25.10 - Atherosclerotic heart disease of [place] coronary artery without angina pectoris (5) DVT prophylaxis Current Visit: Yes Status: Acute Assessment and plan: continue Heparin 5000u SQ TID - Subjective Interval history: Patient today is alert and oriented to person, place, and year, but not month or day. Patient is very soft spoken and seems depressed. We will stop her IV fluids and encourage the patient to drink. We will consult psych after neuro is finished with her. HSV pending. MRI brain unable to be performed due to not beign able to determine if he pacemaker is compatible. Patient reports some L sided neck pain. She states her daughter lives with her at home, but the sign out indicates she was down at home for 2 days. The number for daughter in the chart does not work. - Constitutional Vitals: Temp Pulse Resp BP Pulse Ox 97.5 F L 73 14 112/62 98 10/22/16 11:31 10/22/16 11:31 10/22/16 11:31 10/22/16 11:31 10/22/16 11:31 General appearance: Present: no acute distress. Absent: answers questions appropriately Exam: AxO to person, place, and year, but not day or month. - Eye Eye exam: Present: PERRL - ENT ENT exam: Present: mucous membranes moist - Respiratory Respiratory exam: Present: CTAB. Absent: rales, rhonchi, wheezes - Cardiovascular Cardiovascular exam: Present: RRR, +S1, +S2 - GI/Abdominal GI/Abdominal exam: Present: normal bowel sounds, soft. Absent: tenderness - Extremities Exam Extremities exam: Absent: pedal edema - Neurological Exam Neurological exam: Present: alert. Absent: facial droop - Psychiatric Psychiatric exam: Present: depressed, flat affect Internal Medicine: Result - Labs CBC & Chem 7: 10/22/16 03:18 10/22/16 03:18 Labs: Short CBC 10/22/16 Range/Units 03:18 WBC 7.7 (4.3-11.1) K/mcL Hgb 12.1 (11.5-15.4) g/dL Hct 35.1 L (35.3-44.9) % Plt Count 164 (140-400) K/mcL BMP 10/22/16 03:18 Sodium 136 Potassium 3.5 Chloride 108 Carbon Dioxide 23 BUN 14 Creatinine 0.81 Glucose 193 H Calcium 8.1 L Liver Function 10/22/16 Range/Units 03:18 Total Bilirubin 0.9 (0.2-1.2) mg/dL AST 17 (5-34) Units/L ALT 11 (0-55) Units/L Alkaline Phosphatase 51 (38-126) Units/L Albumin 2.2 L (3.5-5.0) g/dL - ABG Interpretation ABG results: ABG ABG pH 7.47 pH Units (7.32-7.45) H 10/20/16 15:23 ABG pCO2 33 mmHg (35-45) L 10/20/16 15:23 ABG pO2 100 mmHg (85-104) 10/20/16 15:23 ABG O2 Saturation 98 % (95-98) 10/20/16 15:23 PT/INR, D-dimer PT 11.4 Seconds (9.4-12.1) 10/19/16 19:54 Consult Discharge Plan - Plan Referrals: Mikie Duncan MD [Primary Care Provider] - 10/29/16 2:15 pm <Alli Dee - Last Filed: 10/22/16 18:22> Date of Encounter: 10/22/16 - Constitutional Vitals: Temp Pulse Resp BP Pulse Ox 97.8 F 70 16 107/69 97 10/22/16 15:13 10/22/16 15:13 10/22/16 15:13 10/22/16 15:13 10/22/16 15:13 Internal Medicine: Result - Labs CBC & Chem 7: 10/22/16 03:18 10/22/16 03:18 Labs: Short CBC 10/22/16 Range/Units 03:18 WBC 7.7 (4.3-11.1) K/mcL Hgb 12.1 (11.5-15.4) g/dL Hct 35.1 L (35.3-44.9) % Plt Count 164 (140-400) K/mcL BMP 10/22/16 03:18 Sodium 136 Potassium 3.5 Chloride 108 Carbon Dioxide 23 BUN 14 Creatinine 0.81 Glucose 193 H Calcium 8.1 L Liver Function 10/22/16 Range/Units 03:18 Total Bilirubin 0.9 (0.2-1.2) mg/dL AST 17 (5-34) Units/L ALT 11 (0-55) Units/L Alkaline Phosphatase 51 (38-126) Units/L Albumin 2.2 L (3.5-5.0) g/dL - ABG Interpretation ABG results: ABG ABG pH 7.47 pH Units (7.32-7.45) H 10/20/16 15:23 ABG pCO2 33 mmHg (35-45) L 10/20/16 15:23 ABG pO2 100 mmHg (85-104) 10/20/16 15:23 ABG O2 Saturation 98 % (95-98) 10/20/16 15:23 PT/INR, D-dimer PT 11.4 Seconds (9.4-12.1) 10/19/16 19:54 - Attending Attestation I examined this patient and my medical decision-making was reviewed with the Resident Physician, Dr. Harvey. I agree with the documented findings, disposition and treatment plan as described except to the extent set forth below. I have independently obtained history and examined the patient and my findings are summarized below: Patient appears to be withdrawn and depressed, she is not cooperative. Heart is regular with normal S1-S2. Lungs are clear. Abdomen soft. Plan: Continue with IV fluids, supportive care, consider psychiatry consult to evaluate for severe depression which could have contributed to her presentation.
--- NOTE | 2016-10-22 15:09 | Electrocardiograph Report ---
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
--- NOTE | 2016-10-22 15:09 | Electrocardiograph Report ---
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
--- NOTE | 2016-10-22 15:51 | Neurology - Consult Note ---
Date of Encounter: 10/22/16 Time of Encounter: 15:46 Assessment and Plan (1) Acute encephalopathy Current Visit: Yes Status: Acute It is clearly that the patient has been improving after proper medical and supportive treatment. Patient came with elevated hyperglycemia at >400 which rapidly improved after medical treatment and fluid replenishment. She has no headaches, no neck pain, no nuchal rigidity. 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 She can not get MRI of brain due to pacemaker placement and CT of head showed no acute intracranial abnormality. Since her mental status and general condition is improving i would recommend continue medical and supportive care. If mental status still thought to be deviated from her baseline with adequate medical treatment then a diagnostic CSF study may be helpful via inteventional radiology under floro guidance. History of Present Illness Chief complaint: confusion HPI: Ms. Zelaya is a 81 year old female with PMH significant for DM, HT, CAD, bradycardia, s/p pacemaker placement, GERD, who developed acute onset of mental status changes. Reportedly, patient was found down at home and daughter reports changes in her mental status from her baseline. Initial CT of head showed no acute intracranial abnormality. CT of cervical spine showed no acute abnormality. At the time of this interview, patient is sitting in bed and eating comfortably. She is able to use the fork and putting food into her mouth. Somewhat indifferent and does not linda eye contact when asking her questions. No focal weakness in seen. Know she is in [place] and knew the year is '17'. Refuse to tell her daughter's name. Past Med Surg Social Fam HX - Past Medical History Medical history: diabetes, hypertension Psychiatric history: no psych history - Past Surgical History Surgical History: pacemaker/AICD (Dual chamber pacemaker) - Social History Smoking Status: Former smoker Smokeless Tobacco Status: No Alcohol use: none Drug use: none - Family History Father Living Status: Age at : 64 Hx Family Cardiac Disorders: Yes (ND) Medications and Allergies Lisinopril [Zestril] 20 mg PO DAILY 10/20/16 [History] Metoprolol XL (24 HR) Succ [Toprol XL] 25 mg PO DAILY 10/20/16 [History] Omeprazole [PriLOSEC] 20 mg PO DAILY 10/20/16 [History] Simvastatin 10/20/16 [History] metFORMIN [Glucophage] 1,000 mg PO BID 10/20/16 [History] Allergies naproxen [From Naprosyn] Allergy (Verified 10/19/16 22:08) Rash Tetracycline Allergy (Verified 10/19/16 22:08) Rash All Systems: A 10-system review of systems was performed and is negative for pertinent findings except as documented above in the HPI. Physical Examination - Vital Signs Vital Signs: Initial Vital Signs Temp Pulse Resp BP Pulse Ox 0 F L 87 18 161/80 95 10/19/16 19:28 10/19/16 19:28 10/19/16 19:28 10/19/16 19:28 10/19/16 19:28 - Constitutional General appearance: comfortable - Neurologic Sensorimotor examination: other (Grossly intact) Detailed motor examination: grossly full strength in all extremities Motor examination - right side: 5/5: deltoids, biceps, triceps, wrist flexion, wrist extension, bench precision assembler, hip flexors, tibialis Anterior, quadriceps, toe extension (EHL), plantarflexion Motor examination - left side: 5/5: deltoids, biceps, triceps, wrist flexion, wrist extension, hip flexors, bench precision assembler, quadriceps, tibialis Anterior, toe extension (EHL), plantarflexion Detailed sensory examination: other (Grossly intact) Posture: other (None) Reflex and gait examination: intact Reflexes: Biceps: 1+, Triceps: 1+, Brachioradialis: 1+, Patella: 1+, Achilles: 1 + Mental Status Examination: awake, alert, oriented to person, oriented to place, oriented to time, follows simple commands Cranial nerve examination: PERRL (Assessment is generally speaking difficult due to patient not fully cooperative. No gross deficits noted. ), EOMI, visual house intact, corneal reflexes brisk symmetrically, sensory to face intact, mastication intact, no facial asymmetry is present, no dysarthria, hearing is intact symmetrically, soft palate elevates bilaterally upon phonation, gag reflex intact, flexes SCM and trapezius muscles symmetrically with full power, tongue protrudes midline, no atrophy or facial fasiculations present Results - Laboratory Findings CBC and BMP: 10/22/16 03:18 10/22/16 03:18 Abnormal lab findings: Abnormal lab results Hct 35.1 % (35.3-44.9) L 10/22/16 03:18 ABG pH 7.47 pH Units (7.32-7.45) H 10/20/16 15:23 ABG pCO2 33 mmHg (35-45) L 10/20/16 15:23 Glucose 193 mg/dL (70-99) H 10/22/16 03:18 POC Glucose 228 (58-89) H 10/21/16 19:22 Hemoglobin A1c 12.7 % (-5.6) H 10/20/16 01:53 Calcium 8.1 mg/dL (8.6-10.8) L 10/22/16 03:18 Magnesium 1.0 mg/dL (1.6-2.6) L 10/21/16 02:57 Ammonia 17 mcmol/L (18-72) L 10/20/16 15:05 Troponin I 0.10 ng/mL (0-0.03) H* 10/20/16 15:05 C-Reactive Protein 42 mg/L (Less than 5) H 10/21/16 16:14 Serum Total Protein 4.7 g/dL (6.0-8.3) L 10/22/16 03:18 Albumin 2.2 g/dL (3.5-5.0) L 10/22/16 03:18 Albumin/Globulin Ratio 0.9 (1.1-2.2) L 10/22/16 03:18 Ur Specific [place] > 1.030 (1.010-1.025) H 10/19/16 19:45 Urine Glucose (UA) >=1000 mg/dL (Normal) H 10/19/16 19:45 Urine Ketones 15 mg/dL (Negative) H 10/19/16 19:45 Consult Discharge Plan - Plan Referrals: Mikie Duncan MD [Primary Care Provider] - 10/29/16 2:15 pm
[2016-10-23] MEDS: 0.9 % Sodium Chloride 1,000 ML IVC SCH (01:02)
[2016-10-23 04:03] LABS: Hematocrit 36.2 % (35.3-44.9); Hemoglobin 12.3 g/dL (11.5-15.4); Mean Corpuscular Hemoglobin 29.4 pg (28.0-33.3); Mean Corpuscular Volume 86.4 fL (83.0-100.0); Mean Platelet Volume 10.3 fL (9.4-12.4); Platelet Count 177 K/mcL (140-400); Red Blood Count 4.19 M/mcL (3.82-4.97); Red Cell Distribution Width 12.9 % (11.5-14.5)
[2016-10-23 04:04] LABS: Alanine Aminotransferase 11 Units/L (0-55); Albumin 2.4 g/dL (3.5-5.0); Albumin/Globulin Ratio 0.9 (1.1-2.2); Alkaline Phosphatase 54 Units/L (38-126); Aspartate Amino Transferase 15 Units/L (5-34); BUN/Creatinine Ratio 20 (6-26); Bilirubin,Total 0.9 mg/dL (0.2-1.2); Blood Urea Nitrogen 17 mg/dL (7-20); Calcium 8.8 mg/dL (8.6-10.8); Carbon Dioxide 23 mEq/L (19-29); Chloride 108 mEq/L (98-109); Globulin 2.7 g/dL (2.4-3.5); Glucose 296 mg/dL (70-99); Osmolality,Calculated 297 (280-300); Potassium 3.6 mEq/L (3.5-4.5); Sodium 137 mEq/L (136-145); Total Protein 5.1 g/dL (6.0-8.3); eGFR For African Americans > 60 (> 60); eGFR For Non-African Americans > 60 (> 60)
[2016-10-23] MEDS: *HR* Heparin 5,000 UNIT/ML VIAL SQ SCH ×3 (04:56→21:58)
[2016-10-23] MEDS: Insulin LISPRO 300 UNITS/3 ML VIAL SQ SCH ×4 (07:58→22:02)
[2016-10-23] MEDS: Metoprolol XL (24 HR) Succ 25 MG TAB.ER.24H PO SCH (09:48)
[2016-10-23] MEDS: Lisinopril 20 MG TABLET PO SCH (09:49)
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
[2016-10-23 10:36] LABS: Magnesium 0.9 mg/dL (1.6-2.6)
[2016-10-24] MEDS: *HR* Heparin 5,000 UNIT/ML VIAL SQ SCH ×2 (05:34→14:00)
[2016-10-24] MEDS ORDERED: Metoprolol XL (24 HR) Succ 50 MG TAB.ER.24H PO SCH (09:00)
[2016-10-24] MEDS: Insulin LISPRO 300 UNITS/3 ML VIAL SQ SCH ×2 (11:21→13:18)
[2016-10-24] MEDS: Lisinopril 20 MG TABLET PO SCH (11:35)
[2016-10-24 12:01] VITALS: BP 116/76
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
[2016-10-24] MEDS ORDERED: Magnesium Sulfate 2 GM in D5% in Water 100 ML IVPB ONE (13:15)
[2016-10-24] MEDS ORDERED: Magnesium Oxide 400 MG TABLET PO SCH (13:15)
--- NOTE | 2016-10-24 15:33 | Physician Discharge Referral ---
ExtendedCare Referral Info Transfer To: [facility] Provider in Charge: Dallin Bocanegra CNP Provider in Charge after Transfer: PCP Institutional Level of Care: Skilled - Diagnosis (1) Acute encephalopathy Priority: Primary Status: Resolved (2) Social discord Priority: Primary Status: Acute (3) Generalized weakness Priority: Primary Status: Acute (4) Hypertension Priority: Secondary Status: Chronic (5) Hypomagnesemia Priority: Primary Status: Acute (6) Diabetes mellitus Priority: Secondary Status: Chronic (7) Dehydration Priority: Primary Status: Resolved (8) CAD (coronary artery disease) Priority: Secondary Status: Chronic (9) Elevated troponin Priority: Primary Status: Acute (10) DVT prophylaxis Priority: Primary Status: Acute (11) Code status needs review Priority: Primary Status: Acute Prognosis: Good Aware of Diagnosis: Patient Aware of Prognosis: Patient - Transfer Medications Prescriptions: Insulin LISPRO [HumaLOG] 0 units SQ HS #1 vial Insulin LISPRO [HumaLOG] 0 units SQ TIDAC #1 vial Magnesium Oxide [Mag-Ox] 400 mg PO BID #60 tab Metoprolol XL (24 HR) Succ [Toprol Xl] 50 mg PO DAILY #30 Home Medications: Lisinopril [Zestril] 20 mg PO DAILY 10/20/16 [History] Omeprazole [PriLOSEC] 20 mg PO DAILY 10/20/16 [History] Simvastatin 10/20/16 [History] metFORMIN [Glucophage] 1,000 mg PO BID 10/20/16 [History] Insulin LISPRO [HumaLOG] 0 units SQ HS #1 vial 10/24/16 [Rx] Insulin LISPRO [HumaLOG] 0 units SQ TIDAC #1 vial 10/24/16 [Rx] Magnesium Oxide [Mag-Ox] 400 mg PO BID #60 tab 10/24/16 [Rx] Metoprolol XL (24 HR) Succ [Toprol Xl] 50 mg PO DAILY #30 10/24/16 [Rx] Allergies/Adverse Reactions: Allergies naproxen [From Naprosyn] Allergy (Verified 10/19/16 22:08) Rash Tetracycline Allergy (Verified 10/19/16 22:08) Rash - Respiratory Orders Smoking Cessation: Smoking cessation has been advised. For more information, call the [place] Tobacco Quit Line at 6-672-IXEH-NOW. - Ancillary Orders May use pressure relief devices daily prn, May go on LUIS FERNANDO w/family/respon libertarian w /meds at nurse discretion PRN, May have alcoholic beverages, May consult with Dentist, Public Relations Analyst, Veterinary Surgeon PRN - Advance Directives Living Will: Yes Power of Leaf Fat Scraper: Yes (needs addressed. APS report submitted) Code Status: DNR-Comfort Care - Mobility Orders Ambulate (per PT) - Rehabiliation Orders Rehab Potential: Fair Rehab Orders: ROM Exercises, Evaluation for Physical Therapy, Evaluation for Occupational Therapy - Treatments Skin tear care topically daily PRN per policy, May check for fecal impaction rectally daily PRN, Fleet enema rectally every other day PRN cleansing purposes - Diet Orders Mechanical Soft, No Added Salt ([place]), No Concentrated Sweets CERTIFICATION: I certify that the transfer of the above named patient to an Extended Care Facility is necessary for the continuing treatment of the diagnosis listed. The above information is true and accurate reflection of patient's current condition. Confidential - Redisclosure prohibited without a patient's written consent.
[2016-10-25 11:35] LABS: Herpes Simplex PCR Qual Res NOT DETECTED
== END 2016-10-24 16:16 | DRG 71 ==
LOC: EMEROO 19:25 → 3BNU 19:25 → SUATTDRO 10-21 17:00
PROVIDERS: ADMIT Internal Medicine; ATTEND Nurse Practitioner Family

== ENCOUNTER 2019-01-25 12:23 | Inpatient (IN) ==
[2019-01-25] MEDS ORDERED: Naloxone 0.4 MG/ML INJ IVP PRN (14:05)
[2019-01-25 15:03] LABS: Basophils % 0.3 %; Eosinophils # 0.1 K/mcL (0.0-0.6); Eosinophils % 0.6 %; Hematocrit 33.5 % (35.3-44.9); Immature Granulocytes % 0.6 % (0-4); Lymphocytes # 2.4 K/mcL (0.6-4.6); Lymphocytes % 25.3 %; Mean Corpuscular HGB Conc 32.8 g/dL (31.6-35.5); Mean Corpuscular Hemoglobin 29.6 pg (28.0-33.3); Mean Corpuscular Volume 90.3 fL (83.0-100.0); Mean Platelet Volume 9.2 fL (9.4-12.4); Monocytes # 0.7 K/mcL (0.0-1.3); Monocytes % 7.9 %; Neutrophils # 6.1 K/mcL (1.6-8.9); Platelet Count 213 K/mcL (140-400); Red Blood Count 3.71 M/mcL (3.82-4.97); Red Cell Distribution Width 12.2 % (11.5-14.5); Segmented Neutrophils % 65.3 %; White Blood Count 9.4 K/mcL (4.3-11.1)
[2019-01-25] MEDS ORDERED: Acetaminophen 325 MG TABLET PO PRN (15:09)
[2019-01-25] MEDS ORDERED: *HR* Dextrose 50 % in Water (Syg) 50 ML SYRINGE IVP PRN (15:11)
[2019-01-25] MEDS ORDERED: D5% in Water 1,000 ML IVC PRN (15:11)
[2019-01-25] MEDS ORDERED: Dextrose Gel 15 GM/37.5 ML TUBE PO PRN ×2 (15:11)
[2019-01-25 15:23] LABS: BUN/Creatinine Ratio 24 (6-26); Blood Urea Nitrogen 23 mg/dL (8-23); Calcium 9.3 mg/dL (8.6-10.3); Carbon Dioxide 23 mEq/L (23-29); Chloride 105 mEq/L (98-107); Glucose 185 mg/dL (70-105); Osmolality,Calculated 292 (280-300); Potassium 4.3 mEq/L (3.5-5.1); Sodium 137 mEq/L (136-145); eGFR For African Americans > 60 (> 60); eGFR For Non-African Americans 57 (> 60)
[2019-01-25 15:37] LABS: Estimated Average Glucose 192 mg/dl
[2019-01-25] MEDS ORDERED: *HR* OxyCODONE/APAP 5/325 TABLET PO PRN (15:44)
[2019-01-25] MEDS: Insulin LISPRO 300 UNITS/3 ML VIAL SQ SCH (16:51)
[2019-01-25 20:35] LABS: Bilirubin,Urine Negative (Negative); Blood,Urine Negative (Negative); Clarity,Urine Cloudy (Clear); Glucose,Urine (UA) Normal (Normal); Ketones,Urine 15 mg/dL (Negative); Leukocyte Esterase,Urine Moderate (Negative); Nitrite,Urine Negative (Negative); Protein,Urine Negative (Neg-Trace); Specific Gravity,Urine 1.021 (1.010-1.025); Urobilinogen,Urine Normal (Normal)
[2019-01-25 20:36] LABS: Bacteria,Urine Many per hpf (None-Few); Color,Urine Yellow (Yellow); Hyaline Casts,Urine Moderate per lpf (None-Few); Squamous Epithelial Cell,Urine Many per lpf (None-Few); WBC,Urine 50-100 per hpf (0-3)
[2019-01-25] MEDS: Magnesium Oxide 400 MG TABLET PO SCH (22:00)
[2019-01-26 02:08] LABS: Basophils # 0.1 K/mcL (0.0-0.2); Basophils % 0.6 %; Eosinophils # 0.2 K/mcL (0.0-0.6); Eosinophils % 2.2 %; Hematocrit 32.6 % (35.3-44.9); Hemoglobin 11.2 g/dL (11.5-15.4); Immature Granulocytes % 0.8 % (0-4); Lymphocytes # 1.8 K/mcL (0.6-4.6); Lymphocytes % 23.8 %; Mean Corpuscular HGB Conc 34.4 g/dL (31.6-35.5); Mean Corpuscular Hemoglobin 29.9 pg (28.0-33.3); Mean Corpuscular Volume 86.9 fL (83.0-100.0); Mean Platelet Volume 9.2 fL (9.4-12.4); Monocytes # 0.7 K/mcL (0.0-1.3); Monocytes % 8.8 %; Neutrophils # 4.9 K/mcL (1.6-8.9); Platelet Count 193 K/mcL (140-400); Red Blood Count 3.75 M/mcL (3.82-4.97); Red Cell Distribution Width 12.3 % (11.5-14.5); Segmented Neutrophils % 63.8 %; White Blood Count 7.7 K/mcL (4.3-11.1)
[2019-01-26 02:28] LABS: BUN/Creatinine Ratio 25 (6-26); Blood Urea Nitrogen 21 mg/dL (8-23); Carbon Dioxide 24 mEq/L (23-29); Chloride 106 mEq/L (98-107); Glucose 167 mg/dL (70-105); Magnesium 1.1 mg/dL (1.6-2.6); Osmolality,Calculated 287 (280-300); Phosphorous 2.4 mg/dL (2.7-4.5); Sodium 135 mEq/L (136-145); eGFR For African Americans > 60 (> 60); eGFR For Non-African Americans > 60 (> 60)
[2019-01-26] MEDS: amLODIPine 5 MG TABLET PO SCH (08:12)
[2019-01-26] MEDS: Metoprolol XL (24 HR) Succ 50 MG TAB.ER.24H PO SCH (08:12)
[2019-01-26] MEDS: Lisinopril 20 MG TABLET PO SCH (08:12)
[2019-01-26] MEDS: Insulin LISPRO 300 UNITS/3 ML VIAL SQ SCH ×3 (08:13→17:44)
[2019-01-26] MEDS: Magnesium Oxide 400 MG TABLET PO SCH ×2 (08:13→22:12)
[2019-01-26] MEDS ORDERED: Ringers Solution, Lactated 1,000 ML IVC SCH (12:30)
[2019-01-27 04:51] LABS: Hematocrit 34.2 % (35.3-44.9); Hemoglobin 11.4 g/dL (11.5-15.4); Mean Corpuscular HGB Conc 33.3 g/dL (31.6-35.5); Mean Corpuscular Hemoglobin 29.7 pg (28.0-33.3); Mean Corpuscular Volume 89.1 fL (83.0-100.0); Platelet Count 190 K/mcL (140-400); Red Blood Count 3.84 M/mcL (3.82-4.97); Red Cell Distribution Width 12.1 % (11.5-14.5)
[2019-01-27 05:04] LABS: Magnesium 1.5 mg/dL (1.6-2.6); Phosphorous 3.9 mg/dL (2.7-4.5)
[2019-01-27 05:07] LABS: BUN/Creatinine Ratio 23 (6-26); Blood Urea Nitrogen 20 mg/dL (8-23); Calcium 9.2 mg/dL (8.6-10.3); Carbon Dioxide 22 mEq/L (23-29); Chloride 103 mEq/L (98-107); Glucose 132 mg/dL (70-105); Osmolality,Calculated 286 (280-300); Potassium 4.6 mEq/L (3.5-5.1); Sodium 136 mEq/L (136-145); eGFR For African Americans > 60 (> 60); eGFR For Non-African Americans > 60 (> 60)
[2019-01-27] MEDS: Insulin LISPRO 300 UNITS/3 ML VIAL SQ SCH ×2 (09:05→11:29)
[2019-01-27] MEDS: Lisinopril 20 MG TABLET PO SCH (09:09)
[2019-01-27] MEDS: amLODIPine 5 MG TABLET PO SCH (09:09)
[2019-01-27] MEDS: Magnesium Oxide 400 MG TABLET PO SCH ×2 (09:09→23:30)
[2019-01-27] MEDS: Metoprolol XL (24 HR) Succ 50 MG TAB.ER.24H PO SCH (09:09)
[2019-01-27] MEDS ORDERED: cefTRIAXone 1,000 MG in Water for inj. (sterile) 10 ML IVP SCH (12:09)
[2019-01-27 13:21] LABS: Bilirubin,Urine Negative (Negative); Blood,Urine Negative (Negative); Clarity,Urine Cloudy (Clear); Color,Urine Yellow (Yellow); Glucose,Urine (UA) Normal (Normal); Ketones,Urine 40 mg/dL (Negative); Leukocyte Esterase,Urine Moderate (Negative); Nitrite,Urine Positive (Negative); Protein,Urine Negative (Neg-Trace); Specific Gravity,Urine 1.023 (1.010-1.025); Urobilinogen,Urine Normal (Normal)
[2019-01-27 13:25] LABS: Bacteria,Urine Many per hpf (None-Few); Hyaline Casts,Urine None Seen per lpf (None-Few); RBC,Urine 0-3 per hpf (0-3); Squamous Epithelial Cell,Urine None Seen per lpf (None-Few); WBC,Urine 15-30 per hpf (0-3)
[2019-01-27] MEDS ORDERED: Ringers Solution, Lactated 1,000 ML IVC SCH (15:30)
[2019-01-27] MEDS ORDERED: *HR* FentaNYL (PF) 100 MCG/2 ML VIAL ONE (17:25)
[2019-01-27] MEDS ORDERED: *HR* Propofol 200 MG/20 ML VIAL IVP ONE (17:25)
[2019-01-27] MEDS ORDERED: *HR* Midazolam HCl 2 MG/2 ML VIAL ONE (17:25)
[2019-01-27] MEDS ORDERED: Lidocaine -MPF 4% 5 ML AMPUL ONE (17:26)
[2019-01-27] MEDS ORDERED: Ondansetron 4 MG/2 ML VIAL ONE (17:26)
[2019-01-27] MEDS ORDERED: Dexamethasone 4 MG/ML VIAL ONE (17:26)
[2019-01-27] MEDS ORDERED: *HR* Rocuronium Bromide 50 MG/5 ML VIAL ONE (17:26)
[2019-01-27] MEDS ORDERED: Ketorolac 30 MG/ML VIAL ONE (17:30)
[2019-01-27] MEDS ORDERED: Neostigmine Methylsulfate 3 MG/3 ML SYRINGE ONE (17:30)
[2019-01-27] MEDS ORDERED: Acetaminophen IV 1,000 MG/100 ML INFUS..BTL ONE (19:03)
[2019-01-27] MEDS ORDERED: Ethanol\\Acetic Acid\\Na Ace\\Ben 1,000 ML IRRIG.SOLN IR ONE (19:05)
[2019-01-27] MEDS ORDERED: D5% in Water 1,000 ML IVC PRN (19:47)
[2019-01-27] MEDS ORDERED: Acetaminophen 325 MG TABLET PO PRN (19:47)
[2019-01-27] MEDS ORDERED: *HR* Dextrose 50 % in Water (Syg) 50 ML SYRINGE IVP PRN (19:47)
[2019-01-27] MEDS ORDERED: Naloxone 0.4 MG/ML INJ IVP PRN (19:47)
[2019-01-27] MEDS ORDERED: Dextrose Gel 15 GM/37.5 ML TUBE PO PRN ×2 (19:47)
[2019-01-27] MEDS ORDERED: Ondansetron 4 MG/2 ML VIAL IVP ONE (19:59)
[2019-01-27] MEDS ORDERED: *HR* FentaNYL (PF) 100 MCG/2 ML VIAL IVP PRN (19:59)
[2019-01-27] MEDS: Ringers Solution, Lactated 1,000 ML IVC SCH (21:41)
[2019-01-28 06:55] LABS: Basophils % 0.4 %; Hematocrit 40.1 % (35.3-44.9); Immature Granulocytes % 1.2 % (0-4); Lymphocytes # 1.1 K/mcL (0.6-4.6); Lymphocytes % 18.5 %; Mean Corpuscular HGB Conc 32.7 g/dL (31.6-35.5); Mean Corpuscular Hemoglobin 29.4 pg (28.0-33.3); Mean Corpuscular Volume 90.1 fL (83.0-100.0); Mean Platelet Volume 9.5 fL (9.4-12.4); Monocytes # 0.3 K/mcL (0.0-1.3); Monocytes % 5.1 %; Neutrophils # 4.3 K/mcL (1.6-8.9); Platelet Count 197 K/mcL (140-400); Red Blood Count 4.45 M/mcL (3.82-4.97); Segmented Neutrophils % 74.8 %; White Blood Count 5.7 K/mcL (4.3-11.1)
[2019-01-28 07:09] LABS: Hemoglobin 13.1 g/dL (11.5-15.4)
[2019-01-28 07:17] LABS: BUN/Creatinine Ratio 29 (6-26); Blood Urea Nitrogen 30 mg/dL (8-23); Calcium 8.9 mg/dL (8.6-10.3); Carbon Dioxide 22 mEq/L (23-29); Chloride 102 mEq/L (98-107); Glucose 235 mg/dL (70-105); Osmolality,Calculated 294 (280-300); Potassium 5.1 mEq/L (3.5-5.1); Sodium 135 mEq/L (136-145); eGFR For African Americans > 60 (> 60); eGFR For Non-African Americans 52 (> 60)
[2019-01-28] MEDS: cefTRIAXone 1,000 MG in Water for inj. (sterile) 10 ML IVP SCH (09:19)
[2019-01-28] MEDS: Insulin LISPRO 300 UNITS/3 ML VIAL SQ SCH ×3 (09:34→17:29)
[2019-01-28] MEDS: Magnesium Oxide 400 MG TABLET PO SCH ×2 (09:34→20:59)
[2019-01-28] MEDS: Lisinopril 20 MG TABLET PO SCH (09:35)
[2019-01-28] MEDS: Metoprolol XL (24 HR) Succ 50 MG TAB.ER.24H PO SCH (09:35)
[2019-01-28] MEDS: amLODIPine 5 MG TABLET PO SCH (09:35)
[2019-01-28] MEDS: Ringers Solution, Lactated 1,000 ML IVC SCH (11:45)
[2019-01-28] MEDS: *HR* Enoxaparin 40 MG/0.4 ML SYRINGE SQ SCH (17:24)
[2019-01-28] MEDS: Docusate Oral Soln 100 MG/10 ML UDC PO SCH (21:00)
[2019-01-29] MEDS: Ringers Solution, Lactated 1,000 ML IVC SCH (01:00)
[2019-01-29] MEDS: *HR* Enoxaparin 40 MG/0.4 ML SYRINGE SQ SCH (05:13)
[2019-01-29] MEDS ORDERED: *HR* Enoxaparin 40 MG/0.4 ML SYRINGE SQ SCH (06:00)
[2019-01-29] MEDS: cefTRIAXone 1,000 MG in Water for inj. (sterile) 10 ML IVP SCH (09:41)
[2019-01-29] MEDS: Metoprolol XL (24 HR) Succ 50 MG TAB.ER.24H PO SCH (10:02)
[2019-01-29] MEDS: amLODIPine 5 MG TABLET PO SCH (10:02)
[2019-01-29] MEDS: Lisinopril 20 MG TABLET PO SCH (10:02)
[2019-01-29] MEDS: Magnesium Oxide 400 MG TABLET PO SCH (10:02)
[2019-01-29] MEDS: Insulin LISPRO 300 UNITS/3 ML VIAL SQ SCH ×2 (10:02→13:00)
[2019-01-29] MEDS: Docusate Oral Soln 100 MG/10 ML UDC PO SCH (10:03)
[2019-01-29 11:51] VITALS: BP 129/78
== END 2019-01-29 13:27 | DRG 470 ==
LOC: 3NENU 12:23 → EMEROOARM 12:23 → SUATTDRO 14:05 → 3NENU 14:15
PROVIDERS: ADMIT Student in an Organized Health Care Education/Training Program; ATTEND Internal Medicine